=== PATIENT | female | born 1975 | race Caucasian/White ===

== ENCOUNTER 2021-10-02 23:36 | Emergency (ER) | payer MEDICAID ==
[~2021-10-02] VITALS: Ht 162.6 cm; Wt 73.0 kg
[~2021-10-02 23:36] MED LIST: FOLI-43 PO; LACT10SO7 PO; METO-539 PO; MULT-230 MT; THIA100T72 MT
[2021-10-03] MEDS ORDERED: CHLORDIAZEPOXIDE 25MG CAPSULE PO ONE ×2 (00:15→07:30)
[2021-10-03] MEDS ORDERED: ONDANSETRON HCL 4MG TABLET PO ONE (00:15)
[2021-10-03] MEDS ORDERED: FAMOTIDINE 20MG TABLET PO ONE (00:15)
[2021-10-03 06:00] VITALS: BP 131/89
[2021-10-03 08:08] LABS: BASOPHILS % 1.4 % (0.0-2.0); EOSINOPHILS % 8.1 % (0.0-5.0); HEMATOCRIT. 29.6 % (36.0-48.0); HEMOGLOBIN. 9.7 g/dL (12.0-16.0); LYMPHOCYTES % 16.6 % (20.0-50.0); MEAN CORPUSCULAR HEMOGLOBIN 31.4 pg (28.0-32.0); MEAN CORPUSCULAR VOLUME 96.1 fL (81.0-99.0); MEAN PLATELET VOLUME 10.4 fl (7.4-10.4); MONOCYTES % 8.8 % (2.0-8.0); NEUTROPHILS % 65.1 % (40.0-76.0); PLATELET 97 x1000/uL (130-400); RED BLOOD CELL COUNT 3.08 mill/uL (4.2-5.4); RED CELL DISTRIBUTION WIDTH 18.2 % (11.6-14.6)
[2021-10-03 08:10] LABS: CHLORIDE 101 mEq/L (98-107)
[2021-10-03] MEDS ORDERED: POTASSIUM CHLORIDE 20MEQ TABLET SR PO ONE (08:45)
[2021-10-03] MEDS ORDERED: LEVO750T46 MT (20:20)
== END 2021-10-03 12:43 | disposition home or self-care (01) ==
LOC: ER 23:36
DX: F10.229 Alcohol dependence with intoxication, unspecified (principal); R10.13 Epigastric pain; K70.30 Alcoholic cirrhosis of liver without ascites; Y90.9 Presence of alcohol in blood, level not specified; Z59.00 Homelessness unspecified
CPT/HCPCS: 36415; 80053; 83690; 85025; 93005; 99284; Q0162

== ENCOUNTER 2021-10-03 12:36 | Emergency (ER) | payer MEDICAID ==
[~2021-10-03] VITALS: Ht 165.1 cm; Wt 64.0 kg
[2021-10-03] MEDS ORDERED: SODIUM CHLORIDE 0.9% 1,000 ML IV ONE (14:15)
[2021-10-03 15:03] LABS: CHLORIDE 102 mEq/L (98-107)
[2021-10-03 15:05] LABS: INR 1.4; PROTHROMBIN TIME 14.8 sec (9.6-11.0)
[2021-10-03] MEDS ORDERED: KCL 10MEQ/50ML PREMIX 50 ML IV STA (15:09)
[2021-10-03 15:12] LABS: ETHANOL BLOOD 178 mg/dL
[2021-10-03 15:14] LABS: CLARITY URINE CLEAR (CLEAR); COLOR URINE DARK YELLOW (YELLOW); KETONES URINE TRACE (NEGATIVE); LEUKOCYTE ESTERASE URINE TRACE (NEGATIVE); NITRITE URINE NEGATIVE (NEGATIVE); OCCULT BLOOD URINE 3+ (NEGATIVE); PROTEIN URINE 3+ (NEGATIVE); SPECIFIC GRAVITY URINE 1.016 (1.005-1.030)
[2021-10-03 15:15] LABS: BASOPHILS % 1.7 % (0.0-2.0); EOSINOPHILS % 7.6 % (0.0-5.0); HEMOGLOBIN. 9.3 g/dL (12.0-16.0); LYMPHOCYTES % 19.3 % (20.0-50.0); MEAN CORPUSCULAR HEMOGLOBIN 31.8 pg (28.0-32.0); MEAN CORPUSCULAR VOLUME 96.2 fL (81.0-99.0); MEAN PLATELET VOLUME 10.7 fl (7.4-10.4); MONOCYTES % 10.4 % (2.0-8.0); PLATELET 87 x1000/uL (130-400); RED BLOOD CELL COUNT 2.92 mill/uL (4.2-5.4); RED CELL DISTRIBUTION WIDTH 17.8 % (11.6-14.6)
[2021-10-03] MEDS ORDERED: CEFTRIAXONE 1 G PREMIX 50 ML IV ONE (15:45)
[2021-10-03] MEDS ORDERED: POTASSIUM CHLORIDE 20MEQ TABLET SR PO ONE (18:45)
[2021-10-03] MEDS ORDERED: PIPERONYL/PYRETHRINS (RID) 120 ML SHAMPOO TOP NR (19:00)
[2021-10-03 20:00] VITALS: BP 125/68
[2021-10-03] MEDS ORDERED: LEVO750T46 MT (20:20)
== END 2021-10-03 20:30 | disposition home or self-care (01) ==
LOC: ER 12:36
DX: F10.20 Alcohol dependence, uncomplicated (principal); N39.0 Urinary tract infection, site not specified; B85.0 Pediculosis due to Pediculus humanus capitis; E87.6 Hypokalemia; K70.30 Alcoholic cirrhosis of liver without ascites; Y90.6 Blood alcohol level of 120-199 mg/100 ml
CPT/HCPCS: 36415; 70450; 71045; 80053; 80320; 81003; 85025; 85610; 86850; 86900; 86901; 96361; 96365; 99285; J0696; J3480; J7030; G0480

== ENCOUNTER 2023-10-08 20:10 | Emergency (ER) | payer MEDICAID ==
[~2023-10-08] VITALS: Ht 162.6 cm; Wt 51.0 kg
[~2023-10-08 20:10] MED LIST changes: +CEFD300C3 MT; -METO-539 PO; +METR-167 MT; +OMEP20CA14 MT; +PIPE118S11 TP; +SUCR1TAB30 MT; +[UNRECOGNIZED DRUG - CODE] TP
[2023-10-08 20:20] VITALS: BP 124/71; PULSE 88; RESP 18; TEMP 98.9; O2SAT 98
[2023-10-08] MEDS ORDERED: HYDROCODONE/ACETAMINOPHEN 5/325MG TABLET PO ONE (21:00)
[2023-10-08] MEDS ORDERED: HYDR-4001 MT (21:07)
== END 2023-10-08 21:37 | disposition home or self-care (01) ==
LOC: ER 20:10
DX: R10.9 Unspecified abdominal pain (principal); F10.20 Alcohol dependence, uncomplicated; Z79.899 Other long term (current) drug therapy
CPT/HCPCS: 99283